=== PATIENT | male | born 1965 | race American Indian/Alaskan Native ===

== ENCOUNTER 2017-11-03 22:49 | Emergency (ER) | payer MEDICARE, MEDICAID ==
[2017-11-03] MEDS ORDERED: Magnesium Sulfate/Water 2 GM in Premix Bag 1 BAG IV ONE (23:51)
--- NOTE | 2017-11-03 23:51 | EDM.PDOC ---
ED HPI GENERAL MEDICAL PROBLEM - General Chief Complaint: Neuro Symptoms/Deficits Stated Complaint: BLOOD PRESSURE ISSUES Time Seen by Provider: 11/03/17 23:21 Source of Information: Reports: Patient, Family History Limitations: Reports: No Limitations - History of Present Illness INITIAL COMMENTS - FREE TEXT/NARRATIVE: pt arrived with a history of having some low bp and feeling very lit headed. Onset: Today Duration: Hour(s): Location: Reports: Head, Chest Associated Symptoms: Reports: Other (pt felt very lite headed, Pt has episodes when he feels like his heart is fluttring. ) Generalized Pain Score (Numeric/FACES): 7 - Related Data Allergies Allergy/AdvReac Type Severity Reaction Status Date / Time celecoxib [From Celebrex] Allergy Stomach Verified 11/03/17 23:31 Upset lisinopril Allergy Cough Verified 11/03/17 23:32 Penicillins Allergy Stomach Verified 11/03/17 23:31 Upset Sulfa (Sulfonamide Allergy Stomach Verified 11/03/17 23:31 Antibiotics) Upset sulfamethoxazole Allergy Stomach Verified 11/03/17 23:31 [From Septra] Upset trimethoprim [From Septra] Allergy Stomach Verified 11/03/17 23:31 Upset Home Meds: Home Meds Insulin Aspart [Novolog Flexpen] 10 unit SQ BID 07/31/14 [History] Insulin Detemir [Levemir Flextouch] 70 unit SQ BID 07/31/14 [History] Clopidogrel [Plavix] 75 mg PO DAILY 02/03/15 [History] amLODIPine [Norvasc] 5 mg PO DAILY 02/03/15 [History] atorvaSTATin [Lipitor] 80 mg PO DAILY 11/03/17 [History] Carvedilol [Coreg] 25 mg PO BID 11/04/17 [History] Furosemide [Lasix] 40 mg PO BID 11/04/17 [History] Isosorbide Mononitrate [Imdur] 30 mg PO DAILY 11/04/17 [History] Losartan [Cozaar] 100 mg PO DAILY 11/04/17 [History] Magnesium Oxide 400 mg PO BID 11/04/17 [History] Metoclopramide HCl 10 mg PO ASDIRECTED 11/04/17 [History] Ondansetron [Zofran] 8 mg PO ASDIRECTED 11/04/17 [History] Pantoprazole [ProTONIX] 40 mg PO BIDAC 11/04/17 [History] hydrALAZINE [Apresoline] 50 mg PO ASDIRECTED 11/04/17 [History] Past Medical History HEENT History: Reports: Hard of Hearing, Impaired Vision Cardiovascular History: Reports: Angina, CAD, High Cholesterol, Hypertension, Stents Gastrointestinal History: Reports: Cholelithiasis Genitourinary History: Reports: Acute Renal Failure Musculoskeletal History: Reports: Back Pain, Chronic, Fracture, Osteoarthritis Endocrine/Metabolic History: Reports: Diabetes, Type II - Infectious Disease History Infectious Disease History: Reports: Hepatitis A - Past Surgical History Cardiovascular Surgical History: Reports: Coronary Artery Stent Musculoskeletal Surgical History: Reports: Other (See Below) Social & Family History - Tobacco Use Smoking Status *Q: Never Smoker Years of Tobacco use: 25 Used Tobacco, but Quit: Yes Month/Year Tobacco Last Used: july 2011 Second Hand Smoke Exposure: No - Alcohol Use Days Per Week of Alcohol Use: 0 - Recreational Drug Use Recreational Drug Use: No ED ROS GENERAL - Review of Systems Review Of Systems: See Below Constitutional: Reports: No Symptoms HEENT: Reports: No Symptoms Respiratory: Reports: No Symptoms Cardiovascular: Reports: Other (pt felt liteheaded, ) Endocrine: Reports: No Symptoms GI/Abdominal: Reports: No Symptoms : Reports: No Symptoms Musculoskeletal: Reports: No Symptoms Skin: Reports: No Symptoms ED EXAM, NEURO - Physical Exam Exam: See Below Text/Narrative:: pt arrives with a history of feeling lite headed and he checked his bp at home and it was on the low side in the 100/ 70 range. He did not have chest pain. He does frequently have chest pain. He was just in the hosp at and he was found to be somewhat overloaded with fluid in his chest. His meds were changed at that time. He came home on . Exam Limited By: No Limitations General Appearance: Alert, No Apparent Distress, Other (pupils are equal and reactive. ) Ears: Normal TMs Nose: Normal Inspection Throat/Mouth: Normal Inspection Head Exam: Atraumatic Neck: Normal Inspection Respiratory/Chest: No Respiratory Distress Cardiovascular: Regular Rate, Rhythm GI/Abdominal: Other ( rate is in the 75 t0 80 range. ) (Male) Exam: Deferred Rectal (Males) Exam: Deferred Neurological: Alert, Oriented x 3, Other (pt felt very lite headed. ) Back Exam: Normal Inspection Extremities: Normal Inspection Psychiatric: Normal Affect Course - Vital Signs Last Recorded V/S: Last Vital Signs Temp 35.3 C 11/03/17 23:03 Pulse 73 11/04/17 00:30 Resp 13 11/04/17 00:30 BP 171/82 H 11/04/17 00:30 Pulse Ox 95 11/04/17 00:30 Orthostatic Blood Pressure [ 141/69 Standing] Orthostatic Blood Pressure [ 159/76 Sitting] Orthostatic Blood Pressure [ 168/82 Supine] - Orders/Labs/Meds Orders: Active Orders 24 hr Category Date Time Status EKG Documentation Completion [RC] ASDIRECTED Care 11/03/17 23:12 Active Orthostatic Vital Signs [RC] ASDIRECTED Care 11/03/17 23:49 Active Chest 1V Frontal [CR] Stat Exams 11/03/17 23:26 Taken UA W/MICROSCOPIC [URIN] Urgent Lab 11/03/17 23:11 Ordered Magnesium Sulfate/Water [Magnesium Sulfate 2 GM in Med 11/03/17 23:51 Active Water 50 ML] 2 gm Premix Bag 1 bag IV ONETIME EKG 12 Lead [EK] Routine Ther 11/03/17 23:12 Ordered Medication Orders Magnesium Sulfate 2 gm/ Premix 50 mls @ 12.5 mls/hr IV ONETIME ONE Stop: 11/04/17 03:50 Last Admin: 11/04/17 00:16 Dose: 12.5 mls/hr Labs: Laboratory Tests 11/03/17 11/03/17 11/03/17 Range/Units 23:16 23:16 23:16 WBC 4.6 (4.5-11.0) K/uL RBC 3.69 L (4.30-5.90) M/uL Hgb 10.8 L (12.0-15.0) g/dL Hct 32.9 L (40.0-54.0) % MCV 89 (80-98) fL MCH 29 (27-31) pg MCHC 33 (32-36) % Plt Count 266 (150-400) K/uL Neut % (Auto) 70 H (36-66) % Lymph % (Auto) 16 L (24-44) % Dawes % (Auto) 10 H (2-6) % Eos % (Auto) 4 (2-4) % Baso % (Auto) 0 (0-1) % Sodium 136 L (140-148) mmol/L Potassium 4.3 (3.6-5.2) mmol/L Chloride 96 L (100-108) mmol/L Carbon Dioxide 31 (21-32) mmol/L Anion Gap 13.3 (5.0-14.0) mmol/L BUN 24 H (7-18) mg/dL Creatinine 7.3 H* D (0.8-1.3) mg/dL Est Cr Clr Drug Dosing 11.70 mL/min Estimated GFR (MDRD) 8 L (>60) Glucose 352 H (74-106) mg/dL Calcium 7.3 L D (8.5-10.1) mg/dL Magnesium (1.8-2.4) mg/dL Total Bilirubin 0.4 D (0.2-1.0) mg/dL AST 42 H D (15-37) U/L ALT 42 D (12-78) U/L Alkaline Phosphatase 93 (46-116) U/L Troponin I < 0.017 (0.000-0.056) ng/mL Total Protein 6.7 (6.4-8.2) g/dL Albumin 3.4 (3.4-5.0) g/dL Globulin 3.3 (2.3-3.5) g/dL Albumin/Globulin Ratio 1.0 L (1.2-2.2) 11/03/17 Range/Units 23:16 WBC (4.5-11.0) K/uL RBC (4.30-5.90) M/uL Hgb (12.0-15.0) g/dL Hct (40.0-54.0) % MCV (80-98) fL MCH (27-31) pg MCHC (32-36) % Plt Count (150-400) K/uL Neut % (Auto) (36-66) % Lymph % (Auto) (24-44) % Dawes % (Auto) (2-6) % Eos % (Auto) (2-4) % Baso % (Auto) (0-1) % Sodium (140-148) mmol/L Potassium (3.6-5.2) mmol/L Chloride (100-108) mmol/L Carbon Dioxide (21-32) mmol/L Anion Gap (5.0-14.0) mmol/L BUN (7-18) mg/dL Creatinine (0.8-1.3) mg/dL Est Cr Clr Drug Dosing mL/min Estimated GFR (MDRD) (>60) Glucose (74-106) mg/dL Calcium (8.5-10.1) mg/dL Magnesium 1.6 L D (1.8-2.4) mg/dL Total Bilirubin (0.2-1.0) mg/dL AST (15-37) U/L ALT (12-78) U/L Alkaline Phosphatase (46-116) U/L Troponin I (0.000-0.056) ng/mL Total Protein (6.4-8.2) g/dL Albumin (3.4-5.0) g/dL Globulin (2.3-3.5) g/dL Albumin/Globulin Ratio (1.2-2.2) Meds: Medications Generic Name Dose Route Start Last Admin Trade Name Freq PRN Reason Stop Dose Admin Magnesium Sulfate 2 gm/ Premix 50 mls @ 12.5 mls/hr 11/03/17 23:51 11/04/17 00:16 IV 11/04/17 03:50 12.5 mls/hr ONETIME ONE Administration - Re-Assessments/Exams Free Text/Narrative Re-Assessment/Exam: 11/04/17 00:44 pt did not have a low bp on arrival. He was found to be in sinus rhythm. He has a low magnesium and h e was given iv mag. He had a normal trop. There was a concern about a run of a wide complex tach which was not demonstrated on the monitor. 11/04/17 02:25 The episode was later found and did look like episode of atrial flutter. A ekg was obtained and it looked like sinus rhythm at that time. Departure - Departure Time of Disposition: 02:26 Disposition: Home, Self-Care 01 Condition: Fair Clinical Impression: Light-headedness, Hypomagnesemia, Cardiac arrhythmia - Discharge Information Referrals: PCP,None [Primary Care Provider] - Forms: ED Department Discharge Care Plan Goals: mag oxide --increase to 400mg tid, 48 hour holter monitor, keep dialysis appointmnts. Rtc to the hosp to have the holter monitor placed, keep appt on the 08 of November with Rena Brown at [facility]. - My Orders Last 24 Hours: My Active Orders 11/03/17 23:11 UA W/MICROSCOPIC [URIN] Urgent 11/03/17 23:12 EKG Documentation Completion [RC] ASDIRECTED EKG 12 Lead [EK] Routine 11/03/17 23:26 Chest 1V Frontal [CR] Stat 11/03/17 23:49 Orthostatic Vital Signs [RC] ASDIRECTED 11/03/17 23:51 Magnesium Sulfate/Water [Magnesium Sulfate 2 GM in Water 50 ML] 2 gm Premix Bag 1 bag IV ONETIME - Assessment/Plan Last 24 Hours: My Active Orders 11/03/17 23:11 UA W/MICROSCOPIC [URIN] Urgent 11/03/17 23:12 EKG Documentation Completion [RC] ASDIRECTED EKG 12 Lead [EK] Routine 11/03/17 23:26 Chest 1V Frontal [CR] Stat 11/03/17 23:49 Orthostatic Vital Signs [RC] ASDIRECTED 11/03/17 23:51 Magnesium Sulfate/Water [Magnesium Sulfate 2 GM in Water 50 ML] 2 gm Premix Bag 1 bag IV ONETIME
[2017-11-04 02:01] VITALS: BP 171/82
[2017-11-04] MEDS ORDERED: Acetaminophen/Codeine 300-30 MG Tab PO ONE (02:45)
--- NOTE | 2017-11-05 10:13 | CR ---
CHEST: Portable CLINICAL HISTORY:Chest pain COMPARISON:2015 FINDINGS: Heart size pulmonary vascularity and hilar structures are normal. No infiltrate effusion o r pneumothorax is seen. Impression: No acute cardiopulmonary process or significant change from prior study.
== END 2017-11-04 02:57 | disposition home or self-care (01) ==
LOC: JP.ED 22:49
DX: I49.9 Cardiac arrhythmia, unspecified (principal); E83.42 Hypomagnesemia; E11.9 Type 2 diabetes mellitus without complications; I10 Essential (primary) hypertension; E78.00 Pure hypercholesterolemia, unspecified; Z87.891 Personal history of nicotine dependence; Z79.899 Other long term (current) drug therapy; Z79.4 Long term (current) use of insulin; Z88.0 Allergy status to penicillin; Z88.2 Allergy status to sulfonamides; Z88.8 Allergy status to other drugs, medicaments and biological substances
CPT/HCPCS: 36415; 71045; 80053; 83735; 84484; 85025; 93005; 96365; 96366; 99284; A9270; J3475; 93010; 99285

== ENCOUNTER 2017-11-04 23:43 | Emergency (ER) | payer MEDICARE, MEDICAID ==
--- NOTE | 2017-11-04 23:50 | EDM.PDOC ---
ED HPI GENERAL MEDICAL PROBLEM - General Chief Complaint: Chest Pain Stated Complaint: MED[facility] Time Seen by Provider: 11/04/17 23:49 Source of Information: Reports: Patient, EMS, Old Records, RN History Limitations: Reports: No Limitations - History of Present Illness INITIAL COMMENTS - FREE TEXT/NARRATIVE: 52 yo NA male who splits his ER visits between [facility] and [place] called EMS for pleuritic chest pain that began about 8 pm tonight and is worsened by deep breathing. He has a cardiac hx. EMS gave ASA and NTG with minimal change in his sx's. His EKG in the field was mostly normal. EMS noted some BP elevation , but his other vital signs were normal. Does have a known cardiac hx. Has not had any of his evening meds yet on arrival just before midnight. Says he had fluttering in his chest for about 15-30 min starting about 2030h. When the fluttering stopped he had the sharp L of sternum chest pain. Was here last night and is scheduled to get a Holter soon. He was noted to have a mag level of 1.6 last night, other labs were OK. BP last night was initially low. Is a dialysis patient. Goes to [facility] for his dialysis. Onset Date: 11/04/17 Onset Time: 20:30 Duration: Minutes: (lasted about 30 minutes) Location: Reports: Chest Quality: Reports: Sharp Severity: Moderate Improves with: Reports: None Worsens with: Reports: Breathing Context: Reports: Other (Has sharp chest pain nearly daily. ) Treatments CHERRY PITTER: Reports: Aspirin, IV/IO, Nitroglycerin chest Pain Score (Numeric/FACES): 6 - Related Data Allergies Allergy/AdvReac Type Severity Reaction Status Date / Time celecoxib [From Celebrex] Allergy Stomach Verified 11/04/17 23:49 Upset lisinopril Allergy Cough Verified 11/04/17 23:49 Penicillins Allergy Stomach Verified 11/04/17 23:49 Upset Sulfa (Sulfonamide Allergy Stomach Verified 11/04/17 23:49 Antibiotics) Upset sulfamethoxazole Allergy Stomach Verified 11/04/17 23:49 [From ] Upset trimethoprim [From ] Allergy Stomach Verified 11/04/17 23:49 Upset Home Meds: Home Meds Insulin Aspart [Novolog Flexpen] 10 unit SQ BID 07/31/14 [History] Clopidogrel [Plavix] 75 mg PO BEDTIME 02/03/15 [History] amLODIPine [Norvasc] 5 mg PO BEDTIME 02/03/15 [History] atorvaSTATin [Lipitor] 80 mg PO BEDTIME 11/03/17 [History] Carvedilol [Coreg] 25 mg PO BID 11/04/17 [History] Furosemide [Lasix] 40 mg PO BID 11/04/17 [History] Losartan [Cozaar] 100 mg PO BEDTIME 11/04/17 [History] Magnesium Oxide 400 mg PO TID 11/04/17 [History] Metoclopramide HCl 10 mg PO ASDIRECTED 11/04/17 [History] Ondansetron [Zofran] 8 mg PO ASDIRECTED 11/04/17 [History] Pantoprazole [ProTONIX] 40 mg PO BIDAC 11/04/17 [History] hydrALAZINE [Apresoline] 50 mg PO TID 11/04/17 [History] Escitalopram Oxalate 5 mg PO ASDIRECTED 11/05/17 [History] Insulin Glargine,Hum.Rec.Anlog [Tounahed Solostfam] 30 units SUBCUT BEDTIME [History] Past Medical History HEENT History: Reports: Hard of Hearing, Impaired Vision Cardiovascular History: Reports: Angina, CAD, High Cholesterol, Hypertension, Stents Gastrointestinal History: Reports: Cholelithiasis Genitourinary History: Reports: Acute Renal Failure Musculoskeletal History: Reports: Back Pain, Chronic, Fracture, Osteoarthritis Endocrine/Metabolic History: Reports: Diabetes, Type II - Infectious Disease History Infectious Disease History: Reports: Hepatitis A - Past Surgical History Cardiovascular Surgical History: Reports: Coronary Artery Stent Musculoskeletal Surgical History: Reports: Other (See Below) Social & Family History - Tobacco Use Smoking Status *Q: Never Smoker Years of Tobacco use: 25 Used Tobacco, but Quit: Yes Month/Year Tobacco Last Used: july 2011 Second Hand Smoke Exposure: No - Alcohol Use Days Per Week of Alcohol Use: 0 - Recreational Drug Use Recreational Drug Use: No ED ROS GENERAL - Review of Systems Review Of Systems: See Below Constitutional: Reports: No Symptoms HEENT: Reports: No Symptoms Respiratory: Reports: Pleuritic Chest Pain Cardiovascular: Reports: Chest Pain, Palpitations Endocrine: Reports: No Symptoms GI/Abdominal: Reports: No Symptoms : Reports: No Symptoms Musculoskeletal: Reports: No Symptoms Skin: Reports: No Symptoms Neurological: Reports: No Symptoms Psychiatric: Reports: No Symptoms ED EXAM, GENERAL - Physical Exam Exam: See Below Exam Limited By: No Limitations General Appearance: Alert, WD/WN, No Apparent Distress Eye Exam: Bilateral Eye: Normal Inspection Ears: Normal External Exam, Normal Canal, Hearing Grossly Normal, Normal TMs Ear Exam: Bilateral Ear: Auricle Normal, Canal Normal Nose: Normal Inspection, Normal Mucosa, No Blood Throat/Mouth: Normal Inspection, Normal Lips, Normal Oropharynx, Normal Voice, No Airway Compromise. No: Normal Teeth Head: Atraumatic, Normocephalic Neck: Normal Inspection, Supple, Non-Tender Respiratory/Chest: No Respiratory Distress, Lungs Clear, Normal Breath Sounds, No Accessory Muscle Use Cardiovascular: Regular Rate, Rhythm GI/Abdominal: Normal Bowel Sounds, Soft, Non-Tender, No Distention Back Exam: Normal Inspection. No: CVA Tenderness (R), CVA Tenderness (L) Extremities: Normal Inspection, Normal Range of Motion, Non-Tender, No Pedal Edema Neurological: Alert, Oriented, CN II-XII Intact, Normal Cognition, No Motor/ Sensory Deficits Psychiatric: Normal Affect, Normal Mood Skin Exam: Warm, Dry, Intact, Normal Color, No Rash EKG INTERPRETATION EKG Date: 11/04/17 Time: 23:45 Rhythm: NSR Rate (Beats/Min): 72 [place]: Normal P-Wave: Present QRS: Normal ST-T: Normal QT: Prolonged Comparison: No Change Course - Vital Signs Last Recorded V/S: Last Vital Signs Temp 36.8 C 11/04/17 23:45 Pulse 74 11/04/17 23:45 Resp 14 11/04/17 23:45 BP 184/84 H 11/05/17 00:19 Pulse Ox 96 11/04/17 23:45 - Orders/Labs/Meds Orders: Active Orders 24 hr Category Date Time Status Cardiac Monitoring [RC] .As Directed Care 11/04/17 23:47 Active EKG Documentation Completion [RC] ASDIRECTED Care 11/04/17 23:47 Active DRUG SCREEN, URINE [URCHEM] Stat Lab 11/04/17 23:53 Ordered EKG 12 Lead [EK] Routine Ther 11/04/17 23:47 Ordered Labs: Laboratory Tests 11/04/17 11/05/1718 Range/Units 00:01 00:01 00:01 WBC 5.3 (4.5-11.0) K/uL RBC 3.74 L (4.30-5.90) M/uL Hgb 10.8 L (12.0-15.0) g/dL Hct 33.2 L (40.0-54.0) % MCV 89 (80-98) fL MCH 29 (27-31) pg MCHC 33 (32-36) % Plt Count 298 (150-400) K/uL D-Dimer, Quantitative 205 (0.0-400.0) ng/mL Sodium (140-148) mmol/L Potassium (3.6-5.2) mmol/L Chloride (100-108) mmol/L Carbon Dioxide (21-32) mmol/L Anion Gap (5.0-14.0) mmol/L BUN (7-18) mg/dL Creatinine (0.8-1.3) mg/dL Est Cr Clr Drug Dosing mL/min Estimated GFR (MDRD) (>60) Glucose (74-106) mg/dL Calcium (8.5-10.1) mg/dL Troponin I (0.000-0.056) ng/mL Ethyl Alcohol < 3 mg/dL 11/05/17 Range/Units 00:01 WBC (4.5-11.0) K/uL RBC (4.30-5.90) M/uL Hgb (12.0-15.0) g/dL Hct (40.0-54.0) % MCV (80-98) fL MCH (27-31) pg MCHC (32-36) % Plt Count (150-400) K/uL D-Dimer, Quantitative (0.0-400.0) ng/mL Sodium 137 L (140-148) mmol/L Potassium 5.4 H (3.6-5.2) mmol/L Chloride 96 L (100-108) mmol/L Carbon Dioxide 30 (21-32) mmol/L Anion Gap 16.4 H (5.0-14.0) mmol/L BUN 32 H (7-18) mg/dL Creatinine 9.1 H* (0.8-1.3) mg/dL Est Cr Clr Drug Dosing 9.39 mL/min Estimated GFR (MDRD) 6 L (>60) Glucose 229 H (74-106) mg/dL Calcium 7.1 L (8.5-10.1) mg/dL Troponin I < 0.017 (0.000-0.056) ng/mL Ethyl Alcohol mg/dL Meds: Medications Discontinued Medications Generic Name Dose Route Start Last Admin Trade Name Temoq PRN Reason Stop Dose Admin Amlodipine Besylate 5 mg 11/05/17 00:01 11/05/17 00:19 Norvasc PO 11/05/17 00:02 5 mg ONETIME ONE Administration Carvedilol 25 mg 11/04/17 23:57 11/05/17 00:19 Coreg PO 11/04/17 23:58 25 mg ONETIME ONE Administration Hydralazine HCl 50 mg 11/04/17 23:55 11/05/17 00:18 Apresoline PO 11/04/17 23:56 50 mg NOW STA Administration Losartan Potassium 100 mg 11/05/17 00:03 11/05/17 00:19 Cozaar PO 11/05/17 00:04 100 mg ONETIME ONE Administration Departure - Departure Time of Disposition: 00:51 Disposition: Home, Self-Care 01 Condition: Fair Clinical Impression: Pleuritic chest pain, Chronic renal failure, stage 5 Referrals: PCP,None [Primary Care Provider] - Forms: ED Department Discharge - My Orders Last 24 Hours: My Active Orders 11/04/17 23:47 Cardiac Monitoring [RC] .As Directed EKG Documentation Completion [RC] ASDIRECTED EKG 12 Lead [EK] Routine 11/04/17 23:53 DRUG SCREEN, URINE [URCHEM] Stat - Assessment/Plan Last 24 Hours: My Active Orders 11/04/17 23:47 Cardiac Monitoring [RC] .As Directed EKG Documentation Completion [RC] ASDIRECTED EKG 12 Lead [EK] Routine 11/04/17 23:53 DRUG SCREEN, URINE [URCHEM] Stat
[2017-11-04] MEDS ORDERED: hydrALAZINE 25 MG Tab PO STA (23:55)
[2017-11-04] MEDS ORDERED: Carvedilol 25 MG Tab PO ONE (23:57)
[2017-11-05] MEDS ORDERED: amLODIPine 5 MG Tab PO ONE (00:01)
[2017-11-05] MEDS ORDERED: Losartan 50 MG Tab PO ONE (00:03)
[2017-11-05 01:29] VITALS: BP 186/58
== END 2017-11-05 01:07 | disposition home or self-care (01) ==
LOC: JP.ED 23:43
DX: R07.1 Chest pain on breathing (principal); I12.0 Hypertensive chronic kidney disease with stage 5 chronic kidney disease or end stage renal disease; E11.22 Type 2 diabetes mellitus with diabetic chronic kidney disease; N18.5 Chronic kidney disease, stage 5; M19.90 Unspecified osteoarthritis, unspecified site; Z79.899 Other long term (current) drug therapy; Z79.4 Long term (current) use of insulin; Z87.891 Personal history of nicotine dependence; Z88.0 Allergy status to penicillin; Z88.2 Allergy status to sulfonamides; Z88.1 Allergy status to other antibiotic agents; Z88.8 Allergy status to other drugs, medicaments and biological substances; I49.9 Cardiac arrhythmia, unspecified; E83.42 Hypomagnesemia; E11.9 Type 2 diabetes mellitus without complications; I10 Essential (primary) hypertension; E78.00 Pure hypercholesterolemia, unspecified
CPT/HCPCS: 36415; 71045; 80048; 80053; 83735; 84484; 85025; 85027; 85379; 93005; 93010; 96365; 96366; 99284; 99285; A9270; G0480; J3475

== ENCOUNTER 2017-11-06 19:44 | Emergency (ER) | payer MEDICARE, MEDICAID ==
[2017-11-06] MEDS ORDERED: fentaNYL 100 MCG/2 ML SDV IVPUSH ONE (20:31)
[2017-11-06] MEDS ORDERED: Sodium Chloride 0.9% 10 ML Syringe FLUSH PRN ×2 (20:31)
[2017-11-06] MEDS ORDERED: Ondansetron 4 MG/2 ML SDV IVPUSH ONE (20:31)
--- NOTE | 2017-11-06 20:34 | EDM.PDOC ---
ED HPI GENERAL MEDICAL PROBLEM - General Chief Complaint: Gastrointestinal Problem Stated Complaint: VOMITING / FLANK PAIN Time Seen by Provider: 11/06/17 20:20 Source of Information: Reports: Patient, Family, RN Notes Reviewed History Limitations: Reports: No Limitations - History of Present Illness INITIAL COMMENTS - FREE TEXT/NARRATIVE: 52-year-old gentleman presents to the emergency department day complaint of flank pain on the right side, pain is developed over the last 24 hours he does have nausea with it tried some Reglan this morning without much effect no vomiting, he is a dialysis patient last run was on Sunday fistula in left arm. Denies any fevers does have shortness of breath and chest pain but it is not new - Related Data Allergies Allergy/AdvReac Type Severity Reaction Status Date / Time celecoxib [From Celebrex] Allergy Stomach Verified 11/06/17 20:02 Upset lisinopril Allergy Cough Verified 11/06/17 20:02 Penicillins Allergy Stomach Verified 11/06/17 20:02 Upset Sulfa (Sulfonamide Allergy Stomach Verified 11/06/17 20:02 Antibiotics) Upset sulfamethoxazole Allergy Stomach Verified 11/06/17 20:02 [From Septra] Upset trimethoprim [From Septra] Allergy Stomach Verified 11/06/17 20:02 Upset Home Meds: Home Meds Insulin Aspart [Novolog Flexpen] 10 unit SQ BID 07/31/14 [History] Clopidogrel [Plavix] 75 mg PO BEDTIME 02/03/15 [History] amLODIPine [Norvasc] 5 mg PO BEDTIME 02/03/15 [History] atorvaSTATin [Lipitor] 80 mg PO BEDTIME 11/03/17 [History] Carvedilol [Coreg] 25 mg PO BID 11/04/17 [History] Furosemide [Lasix] 40 mg PO BID 11/04/17 [History] Losartan [Cozaar] 100 mg PO BEDTIME 11/04/17 [History] Magnesium Oxide 400 mg PO TID 11/04/17 [History] Metoclopramide HCl 10 mg PO ASDIRECTED 11/04/17 [History] Ondansetron [Zofran] 8 mg PO ASDIRECTED 11/04/17 [History] Pantoprazole [ProTONIX] 40 mg PO BIDAC 11/04/17 [History] hydrALAZINE [Apresoline] 50 mg PO TID 11/04/17 [History] Escitalopram Oxalate 5 mg PO ASDIRECTED 11/05/17 [History] Insulin Glargine,Hum.Rec.Anlog [Michael Galvan] 30 units SUBCUT BEDTIME [History] Past Medical History HEENT History: Reports: Hard of Hearing, Impaired Vision Cardiovascular History: Reports: Angina, CAD, High Cholesterol, Hypertension, Stents Gastrointestinal History: Reports: Cholelithiasis Genitourinary History: Reports: Acute Renal Failure Musculoskeletal History: Reports: Back Pain, Chronic, Fracture, Osteoarthritis Endocrine/Metabolic History: Reports: Diabetes, Type II - Infectious Disease History Infectious Disease History: Reports: Hepatitis A - Past Surgical History Cardiovascular Surgical History: Reports: Coronary Artery Stent Musculoskeletal Surgical History: Reports: Other (See Below) Social & Family History - Tobacco Use Smoking Status *Q: Unknown Ever Smoked Years of Tobacco use: 25 Used Tobacco, but Quit: Yes Month/Year Tobacco Last Used: july 2011 Second Hand Smoke Exposure: No - Caffeine Use Caffeine Use: Reports: Soda - Alcohol Use Days Per Week of Alcohol Use: 0 - Recreational Drug Use Recreational Drug Use: No ED ROS GENERAL - Review of Systems Review Of Systems: See Below Constitutional: Denies: Fever, Chills HEENT: Reports: No Symptoms Respiratory: Reports: Shortness of Breath (Not new) Cardiovascular: Reports: Chest Pain (Not) GI/Abdominal: Reports: Nausea : Reports: Flank Pain, Other (Produces little urine) Musculoskeletal: Reports: No Symptoms Skin: Reports: No Symptoms Neurological: Reports: No Symptoms ED EXAM, GI/ABD - Physical Exam Exam: See Below Text/Narrative:: General: Male, not in any distress, alert and oriented x3 HEENT: head is atraumatic normocephalic, eyes pupils equal round reactive to light, sclera clear no conjunctivitis appreciated. Ears tympanic membranes clear and [place] landmarks and light reflex are present bilaterally canals are clear. Nose no septal deviation, nares are clear, no blood present. Mouth mucosa is moist and pink no erythema or exudate noted in soft palate, tongue is midline uvula is midline, dentition is intact. Neck: Supple no thyromegaly no tracheal deviation. Nodes: Cervical nodes subclavicular nodes nontender no palpable lymphadenopathy noted. Lungs: clear to auscultation bilaterally with symmetrical respirations, no adventitious noise appreciated. CV: Regular rate and rhythm S1 and S2 appreciated no murmurs rubs or gallops noted. Abdomen: Soft, mildly tender along the right flank, no palpable masses or organomegaly appreciated, no distention no guarding bowel sounds are present, . Neuro: Cranial nerves II through XII grossly intact Skin: Warm and dry, intact Course - Vital Signs Last Recorded V/S: Last Vital Signs Temp 97.0 F 11/06/17 21:44 Pulse 70 11/06/17 21:44 Resp 14 11/06/17 21:44 BP 175/86 H 11/06/17 21:44 Pulse Ox 94 L 11/06/17 21:44 - Orders/Labs/Meds Orders: Active Orders 24 hr Category Date Time Status Peripheral IV Care [RC] . DIRECTED Care 11/06/17 20:31 Active Sodium Chloride 0.9% [Saline Flush] Med 11/06/17 20:31 Active 10 ml FLUSH ASDIRECTED PRN Sodium Chloride 0.9% [Saline Flush] Med 11/06/17 20:31 Active 10 ml FLUSH ASDIRECTED PRN Peripheral IV Insertion Adult [OM.PC] Urgent Oth 11/06/17 20:31 Ordered Medication Orders Sodium Chloride (Saline Flush) 10 ml FLUSH ASDIRECTED PRN PRN Reason: Keep Vein Open Last Admin: 11/06/17 20:52 Dose: 10 ml Sodium Chloride (Saline Flush) 10 ml FLUSH ASDIRECTED PRN PRN Reason: Keep Vein Open Labs: Laboratory Tests 11/06/17 11/06/17 11/06/17 Range/Units 20:45 20:45 20:45 WBC 5.6 (4.5-11.0) K/uL RBC 4.04 L (4.30-5.90) M/uL Hgb 11.5 L (12.0-15.0) g/dL Hct 35.8 L (40.0-54.0) % MCV 89 (80-98) fL MCH 29 (27-31) pg MCHC 32 (32-36) % Plt Count 352 (150-400) K/uL Neut % (Auto) 70 H (36-66) % Lymph % (Auto) 16 L (24-44) % Mcintosh % (Auto) 10 H (2-6) % Eos % (Auto) 4 (2-4) % Baso % (Auto) 0 (0-1) % Sodium 137 L (140-148) mmol/L Potassium 4.5 (3.6-5.2) mmol/L Chloride 96 L (100-108) mmol/L Carbon Dioxide 34 H (21-32) mmol/L Anion Gap 11.5 (5.0-14.0) mmol/L BUN 21 H (7-18) mg/dL Creatinine 7.5 H* (0.8-1.3) mg/dL Est Cr Clr Drug Dosing 11.39 mL/min Estimated GFR (MDRD) 8 L (>60) Glucose 208 H (74-106) mg/dL Lactic Acid 1.0 (0.4-2.0) mmol/L Calcium 7.6 L (8.5-10.1) mg/dL Total Bilirubin 0.4 (0.2-1.0) mg/dL AST 30 (15-37) U/L ALT 30 (12-78) U/L Alkaline Phosphatase 97 (46-116) U/L Troponin I < 0.017 (0.000-0.056) ng/mL Total Protein 6.8 (6.4-8.2) g/dL Albumin 3.3 L (3.4-5.0) g/dL Globulin 3.5 (2.3-3.5) g/dL Albumin/Globulin Ratio 0.9 L (1.2-2.2) Lipase 147 (73-393) U/L Meds: Medications Generic Name Dose Route Start Last Admin Trade Name Frenasir PRN Reason Stop Dose Admin Sodium Chloride 10 ml 11/06/17 20:31 11/06/17 20:52 Saline Flush FLUSH 10 ml ASDIRECTED PRN Administration Keep Vein Open Sodium Chloride 10 ml 11/06/17 20:31 Saline Flush FLUSH ASDIRECTED PRN Keep Vein Open Discontinued Medications Generic Name Dose Route Start Last Admin Trade Name Freq PRN Reason Stop Dose Admin Fentanyl 50 mcg 11/06/17 20:31 11/06/17 20:53 Sublimaze IVPUSH 11/06/17 20:32 50 mcg ONETIME ONE Administration Ondansetron HCl 4 mg 11/06/17 20:31 11/06/17 20:53 Zofran IVPUSH 11/06/17 20:32 4 mg ONETIME ONE Administration Departure - Departure Time of Disposition: 22:05 Disposition: Home, Self-Care Condition: Fair Clinical Impression: Flank pain - Discharge Information Referrals: PCP,None [Primary Care Provider] - Forms: ED Department Discharge Additional Instructions: Use hydrocodone as needed for pain control, keep your appointment with dialysis tomorrow, keep your appointment with your primary care provider on call return to the emergency department worsening of symptoms - My Orders Last 24 Hours: My Active Orders 11/06/17 20:31 Peripheral IV Care [RC] . DIRECTED Sodium Chloride 0.9% [Saline Flush] 10 ml FLUSH ASDIRECTED PRN Sodium Chloride 0.9% [Saline Flush] 10 ml FLUSH ASDIRECTED PRN Peripheral IV Insertion Adult [OM.PC] Urgent - Assessment/Plan Last 24 Hours: My Active Orders 11/06/17 20:31 Peripheral IV Care [RC] . DIRECTED Sodium Chloride 0.9% [Saline Flush] 10 ml FLUSH ASDIRECTED PRN Sodium Chloride 0.9% [Saline Flush] 10 ml FLUSH ASDIRECTED PRN Peripheral IV Insertion Adult [OM.PC] Urgent Plan: Assessment Acuity = acute Site and laterality = right flank pain complicated patient with end-stage renal disease currently on dialysis Etiology = unclear etiology Manifestations = none Location of injury = Home Lab values = hemoglobin low 11.5 consistent normochromic anemia, creatinine elevated at 7.5 consistent with end-stage renal disease G5 D, glucose elevated 28 consistent hyperglycemia, troponin negative Plan He received no relief from the fentanyl provided, he does have an appointment for dialysis tomorrow and appointment with his primary care doctor on of this week, prescription written for hydrocodone 5/325 one tab by mouth 3 times a day when necessary total #6 This note was dictated using [employer] voice recognition software please call with any questions on syntax or haley.
[2017-11-06 21:45] VITALS: BP 175/86
== END 2017-11-06 23:01 | disposition home or self-care (01) ==
LOC: JP.ED 19:44
DX: R10.9 Unspecified abdominal pain (principal); I12.0 Hypertensive chronic kidney disease with stage 5 chronic kidney disease or end stage renal disease; E11.22 Type 2 diabetes mellitus with diabetic chronic kidney disease; N18.6 End stage renal disease; Z99.2 Dependence on renal dialysis; M19.90 Unspecified osteoarthritis, unspecified site; Z79.4 Long term (current) use of insulin; Z79.899 Other long term (current) drug therapy; Z88.1 Allergy status to other antibiotic agents; Z88.0 Allergy status to penicillin; Z88.2 Allergy status to sulfonamides; Z88.8 Allergy status to other drugs, medicaments and biological substances
CPT/HCPCS: 36415; 80053; 83605; 83690; 84484; 85025; 96374; 96375; 99284; J2405; J3010; J7050

== ENCOUNTER 2017-11-11 19:23 | Emergency (ER) | payer MEDICARE, MEDICAID ==
[2017-11-11 19:58] VITALS: BP 185/94
--- NOTE | 2017-11-11 20:21 | EDM.PDOC ---
ED HPI GENERAL MEDICAL PROBLEM - General Chief Complaint: Cardiovascular Problem Stated Complaint: DIZZY,LEFT SHOULDER PAIN Time Seen by Provider: 11/11/17 20:10 Source of Information: Reports: Patient History Limitations: Reports: No Limitations - History of Present Illness INITIAL COMMENTS - FREE TEXT/NARRATIVE: 52-year-old male in with very nonspecific complaints of malaise, fatigue, dizziness, intermittent chest pain. On further questioning he did admit that he was in the emergency room in [place] 2 days ago with similar symptoms but they didn't do anything. He slept for 4:00 in the afternoon today, when he woke up he just felt weak so came in to be checked. No fevers or chills, no significant shortness of breath or cough, no nausea or vomiting. He has not checked his glucose today, I did not get the impression he checks it very often. He claims she's been taking his medications appropriately. Onset: Unknown/Unsure Associated Symptoms: Reports: Chest Pain, Headaches, Malaise, Weakness. Denies : Fever/Chills, Nausea/Vomiting - Related Data Allergies Allergy/AdvReac Type Severity Reaction Status Date / Time celecoxib [From Celebrex] Allergy Stomach Verified 11/11/17 19:59 Upset lisinopril Allergy Cough Verified 11/11/17 19:59 Penicillins Allergy Stomach Verified 11/11/17 19:59 Upset Sulfa (Sulfonamide Allergy Stomach Verified 11/11/17 19:59 Antibiotics) Upset sulfamethoxazole Allergy Stomach Verified 11/11/17 19:59 [From Septra] Upset trimethoprim [From Septra] Allergy Stomach Verified 11/11/17 19:59 Upset Home Meds: Home Meds Insulin Aspart [Novolog Flexpen] 10 unit SQ BID 07/31/14 [History] Clopidogrel [Plavix] 75 mg PO BEDTIME 02/03/15 [History] amLODIPine [Norvasc] 5 mg PO BEDTIME 02/03/15 [History] atorvaSTATin [Lipitor] 80 mg PO BEDTIME 11/03/17 [History] Carvedilol [Coreg] 25 mg PO DAILY 11/04/17 [History] Furosemide [Lasix] 40 mg PO BID 11/04/17 [History] Losartan [Cozaar] 100 mg PO BEDTIME 11/04/17 [History] Magnesium Oxide 400 mg PO TID 11/04/17 [History] Metoclopramide HCl 10 mg PO ASDIRECTED 11/04/17 [History] Ondansetron [Zofran] 8 mg PO ASDIRECTED PRN 11/04/17 [History] Pantoprazole [ProTONIX] 40 mg PO BIDAC 11/04/17 [History] hydrALAZINE [Apresoline] 50 mg PO TID 11/04/17 [History] Escitalopram Oxalate 5 mg PO DAILY 11/05/17 [History] Insulin Glargine,Hum.Rec.Anlog [T[place]hed Solostar] 30 units SUBCUT BEDTIME [History] Past Medical History HEENT History: Reports: Hard of Hearing, Impaired Vision Cardiovascular History: Reports: Angina, CAD, High Cholesterol, Hypertension, Stents Gastrointestinal History: Reports: Cholelithiasis Genitourinary History: Reports: Acute Renal Failure Musculoskeletal History: Reports: Back Pain, Chronic, Fracture, Osteoarthritis Endocrine/Metabolic History: Reports: Diabetes, Type II - Infectious Disease History Infectious Disease History: Reports: Hepatitis A - Past Surgical History Cardiovascular Surgical History: Reports: Coronary Artery Stent Musculoskeletal Surgical History: Reports: Other (See Below) Social & Family History - Tobacco Use Smoking Status *Q: Former Smoker Years of Tobacco use: 25 Used Tobacco, but Quit: Yes Month/Year Tobacco Last Used: 2011 Second Hand Smoke Exposure: No - Caffeine Use Caffeine Use: Reports: Soda - Alcohol Use Days Per Week of Alcohol Use: 0 - Recreational Drug Use Recreational Drug Use: No ED ROS GENERAL - Review of Systems Review Of Systems: See Below Constitutional: Reports: Malaise, Weakness. Denies: Fever, Chills Respiratory: Reports: Shortness of Breath Cardiovascular: Reports: Chest Pain GI/Abdominal: Denies: Abdominal Pain Skin: Reports: No Symptoms Neurological: Reports: Dizziness, Headache, Weakness ED EXAM, GENERAL - Physical Exam Exam: See Below Exam Limited By: No Limitations General Appearance: Alert, No Apparent Distress Eye Exam: Bilateral Eye: Normal Inspection (No jaundice, normal hydration) Head: Atraumatic Neck: Supple Respiratory/Chest: No Respiratory Distress, Lungs Clear Cardiovascular: Regular Rate, Rhythm, No Murmur GI/Abdominal: Soft, Non-Tender Extremities: No: Pedal Edema Neurological: Alert, Oriented Course - Vital Signs Last Recorded V/S: Last Vital Signs Temp 99.1 F 11/11/17 20:05 Pulse 84 11/11/17 20:05 Resp 12 11/11/17 20:05 BP 185/94 H 11/11/17 20:05 Pulse Ox 90 L 11/11/17 20:05 - Orders/Labs/Meds Labs: Laboratory Tests 11/11/17 11/11/17 11/11/17 Range/Units 20:31 20:31 20:31 WBC 6.7 (4.5-11.0) K/uL RBC 3.78 L (4.30-5.90) M/uL Hgb 11.0 L (12.0-15.0) g/dL Hct 33.6 L (40.0-54.0) % MCV 89 (80-98) fL MCH 29 (27-31) pg MCHC 33 (32-36) % Plt Count 316 (150-400) K/uL Neut % (Auto) 70 H (36-66) % Lymph % (Auto) 17 L (24-44) % [place] % (Auto) 10 H (2-6) % Eos % (Auto) 3 (2-4) % Baso % (Auto) 0 (0-1) % Sodium 135 L (140-148) mmol/L Potassium 4.7 (3.6-5.2) mmol/L Chloride 96 L (100-108) mmol/L Carbon Dioxide 32 (21-32) mmol/L Anion Gap 11.7 (5.0-14.0) mmol/L BUN 30 H (7-18) mg/dL Creatinine 8.3 H* (0.8-1.3) mg/dL Est Cr Clr Drug Dosing 10.29 mL/min Estimated GFR (MDRD) 7 L (>60) Glucose 265 H (74-106) mg/dL Calcium 7.8 L (8.5-10.1) mg/dL Troponin I 0.026 (0.000-0.056) ng/mL - Re-Assessments/Exams Free Text/Narrative Re-Assessment/Exam: 11/11/17 21:05 CBC, BMP and troponin were obtained. While waiting for the labs reviewed his records from [place] and found that he frequents the emergency room every 3-4 days with the same symptoms. He has had numerous cardiology consults, angiograms, stress tests, and his troponin which is been checked here 8 times over the past 2 years has always been normal. This appears to be some type of anxiety related or somatic complaint. 11/11/17 21:06 Troponin was within normal limits. Creatinine was elevated at 8.3, but he is due for dialysis tomorrow. Hemoglobin was 11, white count was normal. As the patient was being reassured he seemed to suddenly improve and sat up and was anxious to get going. Departure - Departure Time of Disposition: 21:17 Disposition: Home, Self-Care 01 Condition: Good Clinical Impression: Weakness, Atypical chest pain Instructions: Nonspecific Chest Pain Referrals: PCP,None [Primary Care Provider] - Forms: ED Department Discharge Care Plan Goals: Continue to take your medications as prescribed. Recheck with your regular physician later this week if you develop any other concerns or persistent symptoms. Return to the emergency room if worsening.
== END 2017-11-11 21:17 | disposition home or self-care (01) ==
LOC: JP.ED 19:23
DX: R07.89 Other chest pain (principal); R53.1 Weakness; E78.00 Pure hypercholesterolemia, unspecified; I10 Essential (primary) hypertension; E11.9 Type 2 diabetes mellitus without complications; Z87.891 Personal history of nicotine dependence; Z88.8 Allergy status to other drugs, medicaments and biological substances; Z88.2 Allergy status to sulfonamides; Z88.0 Allergy status to penicillin; Z79.899 Other long term (current) drug therapy
CPT/HCPCS: 36415; 80048; 84484; 85025; 99284

== ENCOUNTER 2017-11-21 00:08 | Emergency (ER) | payer MEDICARE, MEDICAID ==
[2017-11-21 00:29] VITALS: BP 183/90
--- NOTE | 2017-11-21 00:46 | EDM.PDOC ---
ED HPI GENERAL MEDICAL PROBLEM - General Chief Complaint: Chest Pain Stated Complaint: [facility] Time Seen by Provider: 11/21/17 00:25 Source of Information: Reports: Patient, EMS History Limitations: Reports: No Limitations - History of Present Illness INITIAL COMMENTS - FREE TEXT/NARRATIVE: 52-year-old male brought in by ambulance with chest pains. I saw this patient 10 days ago with chest pain, I evaluated his past medical history and found that he was frequenting emergency rooms for chest pain for the past several years, particularly over the past 6 months almost on a weekly basis. A troponin was drawn and normal and I reassured the patient, tried to convince him that if chest pains recur that they're likely related to anxiety or something other than cardiac. However 2 days later he was sent to [facility] with chest pains by EMS , had a thorough 3 days evaluation including an angiogram all negative. He was seen again 2 days ago in [place] with initially was a chief complaint of gastroenteritis type symptoms but developed chest pain while in the emergency room. A call was made to [facility] to consider re-transferring him to [facility] but they would not accept him because all labs, all evaluations have been done and if nothing is changing but his somatic complaints there is no further workup or treatment needed. 2 days later he is now in our emergency room again with chest pain. His EKG done by EMS was stable. He looks entirely comfortable. He complains that his chest pains are frequent, brief, needlelike and sometimes radiates to his left side. No shortness of breath. headache and a pin in his chest Pain Score (Numeric/FACES): 6 - Related Data Allergies Allergy/AdvReac Type Severity Reaction Status Date / Time celecoxib [From Celebrex] Allergy Stomach Verified 11/11/17 19:59 Upset lisinopril Allergy Cough Verified 11/11/17 19:59 Penicillins Allergy Stomach Verified 11/11/17 19:59 Upset Sulfa (Sulfonamide Allergy Stomach Verified 11/11/17 19:59 Antibiotics) Upset sulfamethoxazole Allergy Stomach Verified 11/11/17 19:59 [From ] Upset trimethoprim [From ] Allergy Stomach Verified 11/11/17 19:59 Upset Home Meds: Home Meds Insulin Aspart [Novolog Flexpen] 10 unit SQ BID 07/31/14 [History] Clopidogrel [Plavix] 75 mg PO BEDTIME 02/03/15 [History] amLODIPine [Norvasc] 5 mg PO BEDTIME 02/03/15 [History] atorvaSTATin [Lipitor] 80 mg PO BEDTIME 11/03/17 [History] Carvedilol [Coreg] 25 mg PO DAILY 11/04/17 [History] Furosemide [Lasix] 40 mg PO BID 11/04/17 [History] Losartan [Cozaar] 100 mg PO BEDTIME 11/04/17 [History] Magnesium Oxide 400 mg PO TID 11/04/17 [History] Metoclopramide HCl 10 mg PO ASDIRECTED 11/04/17 [History] Ondansetron [Zofran] 8 mg PO ASDIRECTED PRN 11/04/17 [History] Pantoprazole [ProTONIX] 40 mg PO BIDAC 11/04/17 [History] hydrALAZINE [Apresoline] 50 mg PO TID 11/04/17 [History] Escitalopram Oxalate 5 mg PO DAILY 11/05/17 [History] Insulin Glargine,Hum.Rec.Anlog [[place] Solostar] 30 units SUBCUT BEDTIME [History] Past Medical History HEENT History: Reports: Hard of Hearing, Impaired Vision Cardiovascular History: Reports: Angina, CAD, High Cholesterol, Hypertension, Stents Gastrointestinal History: Reports: Cholelithiasis Genitourinary History: Reports: Acute Renal Failure Musculoskeletal History: Reports: Back Pain, Chronic, Fracture, Osteoarthritis Endocrine/Metabolic History: Reports: Diabetes, Type II - Infectious Disease History Infectious Disease History: Reports: Hepatitis A - Past Surgical History Cardiovascular Surgical History: Reports: Coronary Artery Stent Musculoskeletal Surgical History: Reports: Other (See Below) Social & Family History - Caffeine Use Caffeine Use: Reports: Soda ED ROS GENERAL - Review of Systems Review Of Systems: See Below Constitutional: Denies: Fever, Chills Respiratory: Denies: Shortness of Breath, Cough Cardiovascular: Reports: Chest Pain GI/Abdominal: Reports: Other (His recent gastroenteritis symptoms worked up in [place] have resolved). Denies: Abdominal Pain, Nausea, Vomiting Psychiatric: Reports: Anxiety ED EXAM, GENERAL - Physical Exam Exam: See Below Exam Limited By: No Limitations General Appearance: Alert, No Apparent Distress Respiratory/Chest: No Respiratory Distress, Lungs Clear Cardiovascular: Regular Rate, Rhythm GI/Abdominal: Non-Tender Neurological: Alert, Oriented Psychiatric: Flat Affect Skin Exam: Warm, Dry Course - Vital Signs Last Recorded V/S: Last Vital Signs Temp 98.6 F 11/21/17 00:21 Pulse 81 11/21/17 00:21 Resp 18 11/21/17 00:21 BP 183/90 H 11/21/17 00:21 Pulse Ox 95 11/21/17 00:21 - Orders/Labs/Meds Labs: Laboratory Tests 11/21/17 Range/Units 00:20 Troponin I < 0.017 (0.000-0.056) ng/mL - Re-Assessments/Exams Free Text/Narrative Re-Assessment/Exam: 11/21/17 00:45 Explained to the patient I will check a troponin to rule out any heart damage for the last 2 days but no other workup is needed. 11/21/17 00:49 Troponin is 0 Departure - Departure Time of Disposition: 00:57 Disposition: Home, Self-Care 01 Condition: Good Clinical Impression: Non-cardiac chest pain - Discharge Information Instructions: Nonspecific Chest Pain Referrals: PCP,None [Primary Care Provider] - Forms: ED Department Discharge Care Plan Goals: Use tylenol and Xanax for chest pains, try to relax. Follow up with your regular doctor later this week for a recheck.
== END 2017-11-21 00:25 | disposition home or self-care (01) ==
LOC: JP.ED 00:08
DX: R07.89 Other chest pain (principal); I10 Essential (primary) hypertension; E11.9 Type 2 diabetes mellitus without complications; E78.00 Pure hypercholesterolemia, unspecified; Z79.4 Long term (current) use of insulin; Z79.899 Other long term (current) drug therapy; Z88.2 Allergy status to sulfonamides; Z88.0 Allergy status to penicillin; Z88.8 Allergy status to other drugs, medicaments and biological substances; Z88.1 Allergy status to other antibiotic agents
CPT/HCPCS: 36415; 84484; 99285

== ENCOUNTER 2018-01-01 22:01 | Emergency (ER) | payer MEDICARE, MEDICAID ==
[2018-01-01 22:45] VITALS: BP 164/82
--- NOTE | 2018-01-01 23:36 | EDM.PDOC ---
ED HPI GENERAL MEDICAL PROBLEM - General Chief Complaint: Back Pain or Injury Stated Complaint: BACK PAIN Time Seen by Provider: 01/01/18 22:57 Source of Information: Reports: Patient, Old Records, RN Notes Reviewed History Limitations: Reports: Other (poor historian, somewhat vague) - History of Present Illness INITIAL COMMENTS - FREE TEXT/NARRATIVE: 52-year-old male, both he and his daughter came into emergency be seen separately Chief complaint Left mid back pain History of present illness 52-year-old male with diabetes mellitus on insulin and with chronic renal failure on dialysis for about 2 years. States he is on dialysis because his kidneys were damage by contrast dye. Gets dialysis Wednesdays and Fridays. About 2 weeks ago started developing left-sided mid back pain, was seen in emergency for this. X-ray showed pleural effusion and he was sent for dialysis. Eventually he did have drainage of the fluid 150 mL. He did not make him feel any better. He continues to have left mid back pain but not short of breath. Feels better lying on his right, worse if he is on his back lying on his left side or walking around. No fever no cough no shortness of breath Nausea some days but no vomiting or diarrhea. He has a history of chronic depression which affects him somewhat. Blood sugars have been running between 1:15 to 175 which is better than previously. No numbness or weakness in his arms or legs No loss of bladder or bowel control No fever It's a bit unclear for me why he came to emergency, perhaps because his daughter did and perhaps it's because of the ongoing back pain, - Related Data Allergies Allergy/AdvReac Type Severity Reaction Status Date / Time celecoxib [From Celebrex] Allergy Stomach Verified 12/27/17 23:59 Upset lisinopril Allergy Cough Verified 12/27/17 23:59 Penicillins Allergy Stomach Verified 12/27/17 23:59 Upset Sulfa (Sulfonamide Allergy Stomach Verified 12/27/17 23:59 Antibiotics) Upset sulfamethoxazole Allergy Stomach Verified 12/27/17 23:59 [From ] Upset trimethoprim [From ] Allergy Stomach Verified 12/27/17 23:59 Upset Home Meds: Home Meds Insulin Aspart [Novolog Flexpen] 10 unit SQ DAILY 07/31/14 [History] Clopidogrel [Plavix] 75 mg PO BEDTIME 02/03/15 [History] amLODIPine [Norvasc] 5 mg PO BEDTIME 02/03/15 [History] atorvaSTATin [Lipitor] 80 mg PO BEDTIME 11/03/17 [History] Carvedilol [Coreg] 25 mg PO DAILY 11/04/17 [History] Furosemide [Lasix] 40 mg PO BID 11/04/17 [History] Losartan [Cozaar] 100 mg PO BEDTIME 11/04/17 [History] Magnesium Oxide 400 mg PO TID 11/04/17 [History] Metoclopramide HCl 10 mg PO ASDIRECTED 11/04/17 [History] Ondansetron [Zofran] 8 mg PO ASDIRECTED PRN 11/04/17 [History] Pantoprazole [ProTONIX] 40 mg PO BIDAC 11/04/17 [History] hydrALAZINE [Apresoline] 50 mg PO TID 11/04/17 [History] Escitalopram Oxalate 5 mg PO DAILY 11/05/17 [History] Cyclobenzaprine [Flexeril] 10 mg PO BID PRN #15 tab 01/02/18 [Rx] Past Medical History HEENT History: Reports: Hard of Hearing, Impaired Vision Cardiovascular History: Reports: Angina, CAD, High Cholesterol, Hypertension, Stents Gastrointestinal History: Reports: Cholelithiasis Genitourinary History: Reports: Chronic Renal Insuffiency, Dialysis Other Genitourinary History: [place] [facility] Musculoskeletal History: Reports: Back Pain, Chronic, Fracture, Osteoarthritis Psychiatric History: Reports: Anxiety, Depression Endocrine/Metabolic History: Reports: Diabetes, Type II - Infectious Disease History Infectious Disease History: Reports: Hepatitis A - Past Surgical History Cardiovascular Surgical History: Reports: Coronary Artery Stent Other Male Surgeries/Procedures: left arm fistula Neurological Surgical History: Reports: Laminectomy Musculoskeletal Surgical History: Reports: Other (See Below) Social & Family History - Tobacco Use Smoking Status *Q: Former Smoker Used Tobacco, but Quit: Yes Month/Year Tobacco Last Used: 2011 - Caffeine Use Caffeine Use: Reports: Coffee - Recreational Drug Use Recreational Drug Use: No ED ROS GENERAL - Review of Systems Review Of Systems: See Below Constitutional: Reports: No Symptoms HEENT: Reports: No Symptoms Respiratory: Reports: Other (left posterior chest/flank pain). Denies: Shortness of Breath Cardiovascular: Reports: No Symptoms Endocrine: Reports: No Symptoms GI/Abdominal: Reports: No Symptoms : Reports: Flank Pain. Denies: Dysuria, Frequency, Incontinence Musculoskeletal: Reports: Back Pain (to the left of the mid spine), Leg Pain. Denies: Neck Pain Skin: Reports: No Symptoms Neurological: Reports: No Symptoms Immunologic: Reports: No Symptoms ED EXAM, GENERAL - Physical Exam Exam: See Below Exam Limited By: No Limitations General Appearance: Alert, No Apparent Distress (appears relaxed not in acute distress), Other (lying quietly on his right side, vital signs show elevated systolic blood pressure otherwise normal) Eye Exam: Bilateral Eye: Normal Inspection Ears: Normal External Exam, Hearing Loss (, chronic) Nose: Normal Inspection Throat/Mouth: Normal Inspection Head: Atraumatic, Normocephalic Neck: Normal Inspection, Supple Respiratory/Chest: No Respiratory Distress, No Accessory Muscle Use Cardiovascular: Normal Peripheral Pulses, Regular Rate, Rhythm GI/Abdominal: Normal Bowel Sounds, Soft, Non-Tender, No Abnormal Bruit, No Mass Back Exam: CVA Tenderness (L), Muscle Spasm, Paraspinal Tenderness. No: Vertebral Tenderness Extremities: Normal Inspection, Non-Tender Neurological: Alert, No Motor/Sensory Deficits Psychiatric: Flat Affect Skin Exam: Warm, Dry, No Rash Course - Vital Signs Last Recorded V/S: Last Vital Signs Temp 36.1 C 01/01/18 22:44 Pulse 72 01/01/18 22:44 Resp 18 01/01/18 22:44 BP 164/82 H 01/01/18 22:44 Pulse Ox 93 L 01/01/18 22:44 - Orders/Labs/Meds Orders: Active Orders 24 hr Category Date Time Status Chest 2V [CR] Stat Exams 01/01/18 23:26 Taken Labs: Laboratory Tests 01/01/18 01/01/18 Range/Units 23:30 23:30 WBC 5.6 (4.5-11.0) K/uL RBC 3.37 L (4.30-5.90) M/uL Hgb 9.9 L (12.0-15.0) g/dL Hct 30.1 L (40.0-54.0) % MCV 89 (80-98) fL MCH 29 (27-31) pg MCHC 33 (32-36) % Plt Count 284 (150-400) K/uL Sodium 140 (140-148) mmol/L Potassium 5.1 (3.6-5.2) mmol/L Chloride 100 (100-108) mmol/L Carbon Dioxide 31 (21-32) mmol/L Anion Gap 8.9 (5.0-14.0) mmol/L BUN 45 H (7-18) mg/dL Creatinine 8.5 H* (0.8-1.3) mg/dL Est Cr Clr Drug Dosing 10.05 mL/min Estimated GFR (MDRD) 7 L (>60) Glucose 249 H (74-106) mg/dL Calcium 7.1 L (8.5-10.1) mg/dL Total Bilirubin 0.3 (0.2-1.0) mg/dL AST 19 (15-37) U/L ALT 18 (12-78) U/L Alkaline Phosphatase 99 (46-116) U/L Total Protein 6.6 (6.4-8.2) g/dL Albumin 2.9 L (3.4-5.0) g/dL Globulin 3.7 H (2.3-3.5) g/dL Albumin/Globulin Ratio 0.8 L (1.2-2.2) - Re-Assessments/Exams Free Text/Narrative Re-Assessment/Exam: 01/01/18 23:37 52-year-old male with left-sided paraspinal tenderness she reports started 2 weeks ago. He's on dialysis and has diabetes. It's unclear if he wishes treatment for this, he can hydrocodone earlier in the week. differential diagnosis includes infection versus musculoskeletal pain, however pain is reproducible by palpation Lab and x-ray investigations 01/01/18 23:45 chest x-ray showing persistent bilateral effusions but no signs of pneumonia or infection Mild anemia, present previously, elevated creatinine and BUN as expected No other significant findings 01/02/18 00:39 Departure - Departure Time of Disposition: 00:41 Disposition: Home, Self-Care 01 Condition: Good Clinical Impression: Mid back pain on left side - Discharge Information Instructions: Back Pain, Adult, [id number] Referrals: PCP,None [Primary Care Provider] - Forms: ED Department Discharge Additional Instructions: back pain, mid back left side Most likely sore muscles as the pain can be reproduced by pushing on the back. Stay as active as possible but to help his sleep, muscle relaxant prescribed for use at night as needed Follow-up with your doctor/physician/clinic 1-2 weeks if you are continuing to have discomfort Get checked sooner if you develop fever or vomiting - My Orders Last 24 Hours: My Active Orders 01/01/18 23:26 Chest 2V [CR] Stat - Assessment/Plan Last 24 Hours: My Active Orders 01/01/18 23:26 Chest 2V [CR] Stat
--- NOTE | 2018-01-02 08:38 | CR ---
CHEST: 2 view CLINICAL HISTORY:Bilateral effusions COMPARISON:12/28/2017 FINDINGS: Patient is persistent bibasal pleural effusions. The there may be a slight increase on the left. Pulmonary vascularity is normal.. IMPRESSION: Persistent bilateral pleural effusions, left greater than right. There is a slight incre ase on the left when compared to prior study.
== END 2018-01-02 01:25 | disposition home or self-care (01) ==
LOC: JP.ED 22:01
DX: M54.6 Pain in thoracic spine (principal); I12.9 Hypertensive chronic kidney disease with stage 1 through stage 4 chronic kidney disease, or unspecified chronic kidney disease; E11.22 Type 2 diabetes mellitus with diabetic chronic kidney disease; N18.9 Chronic kidney disease, unspecified; F41.9 Anxiety disorder, unspecified; F32.9 Major depressive disorder, single episode, unspecified; Z87.891 Personal history of nicotine dependence; Z79.899 Other long term (current) drug therapy; Z88.2 Allergy status to sulfonamides; Z88.8 Allergy status to other drugs, medicaments and biological substances; Z88.0 Allergy status to penicillin; Z88.1 Allergy status to other antibiotic agents
CPT/HCPCS: 36415; 71046; 71046-26; 80053; 85027; 99283; 99284

== ENCOUNTER 2018-01-10 21:23 | Emergency (ER) | payer MEDICARE, MEDICAID ==
[2018-01-10 22:24] VITALS: BP 186/90
--- NOTE | 2018-01-10 22:48 | EDM.PDOC ---
ED HPI GENERAL MEDICAL PROBLEM - General Chief Complaint: General Stated Complaint: LIGHTHEADED,NUMBNESS IN FEET Time Seen by Provider: 01/10/18 22:30 Source of Information: Reports: Patient History Limitations: Reports: No Limitations - History of Present Illness INITIAL COMMENTS - FREE TEXT/NARRATIVE: 52 yo NA male presents with light-headedness since this morning. He has CRF and gets dialysis on . He ate a light dinner without any reduction in his sx' s. He did not contact his provider about this. He denies nausea, vomiting, diarrhea or bleeding. No fever. No CORREA. Blood sugars OK. 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[employer] ACQUISTION: Reports: Other (see below) (none) - Related Data Allergies Allergy/AdvReac Type Severity Reaction Status Date / Time celecoxib [From Celebrex] Allergy Stomach Verified 01/10/18 22:23 Upset lisinopril Allergy Cough Verified 01/10/18 22:23 Penicillins Allergy Stomach Verified 01/10/18 22:23 Upset Sulfa (Sulfonamide Allergy Stomach Verified 01/10/18 22:23 Antibiotics) Upset sulfamethoxazole Allergy Stomach Verified 01/10/18 22:23 [From Septra] Upset trimethoprim [From Septra] Allergy Stomach Verified 01/10/18 22:23 Upset Home Meds: Home Meds Insulin Aspart [Novolog Flexpen] 10 unit SQ DAILY 07/31/14 [History] Clopidogrel [Plavix] 75 mg PO BEDTIME 02/03/15 [History] amLODIPine [Norvasc] 5 mg PO BEDTIME 02/03/15 [History] atorvaSTATin [Lipitor] 80 mg PO BEDTIME 11/03/17 [History] Carvedilol [Coreg] 25 mg PO DAILY 11/04/17 [History] Furosemide [Lasix] 40 mg PO BID 11/04/17 [History] Losartan [Cozaar] 100 mg PO BEDTIME 11/04/17 [History] Magnesium Oxide 400 mg PO TID 11/04/17 [History] Metoclopramide HCl 10 mg PO ASDIRECTED 11/04/17 [History] Ondansetron [Zofran] 8 mg PO ASDIRECTED PRN 11/04/17 [History] Pantoprazole [ProTONIX] 40 mg PO BIDAC 11/04/17 [History] hydrALAZINE [Apresoline] 50 mg PO TID 11/04/17 [History] Escitalopram Oxalate 5 mg PO DAILY 11/05/17 [History] Cyclobenzaprine [Flexeril] 10 mg PO BID PRN #15 tab 01/02/18 [Rx] Past Medical History HEENT History: Reports: Hard of Hearing, Impaired Vision Cardiovascular History: Reports: Angina, CAD, High Cholesterol, Hypertension, Stents Gastrointestinal History: Reports: Cholelithiasis Genitourinary History: Reports: Chronic Renal Insuffiency, Dialysis Other Genitourinary History: [place] [facility] Musculoskeletal History: Reports: Back Pain, Chronic, Fracture, Osteoarthritis Psychiatric History: Reports: Anxiety, Depression Endocrine/Metabolic History: Reports: Diabetes, Type II - Infectious Disease History Infectious Disease History: Reports: Hepatitis A - Past Surgical History Cardiovascular Surgical History: Reports: Coronary Artery Stent Other Male Surgeries/Procedures: left arm fistula Neurological Surgical History: Reports: Laminectomy Musculoskeletal Surgical History: Reports: Other (See Below) Social & Family History - Tobacco Use Smoking Status *Q: Never Smoker - Caffeine Use Caffeine Use: Reports: Soda - Recreational Drug Use Recreational Drug Use: No ED ROS GENERAL - Review of Systems Review Of Systems: See Below Constitutional: Reports: No Symptoms HEENT: Reports: No Symptoms Respiratory: Reports: No Symptoms Cardiovascular: Reports: Lightheadedness Endocrine: Reports: No Symptoms GI/Abdominal: Reports: No Symptoms : Reports: No Symptoms Musculoskeletal: Reports: No Symptoms Skin: Reports: No Symptoms Neurological: Reports: No Symptoms ED EXAM, GENERAL - Physical Exam Exam: See Below Exam Limited By: No Limitations General Appearance: Alert, WD/WN, No Apparent Distress Eye Exam: Bilateral Eye: Normal Inspection Ears: Normal External Exam, Normal Canal, Hearing Grossly Normal, Normal TMs Ear Exam: Bilateral Ear: Auricle Normal, Canal Normal, TM normal Nose: Normal Inspection, No Blood Throat/Mouth: Normal Inspection, Normal Lips, Normal Oropharynx, Normal Voice, No Airway Compromise Head: Atraumatic, Normocephalic Neck: Normal Inspection, Supple, Non-Tender Respiratory/Chest: No Respiratory Distress, Lungs Clear, Normal Breath Sounds, No Accessory Muscle Use Cardiovascular: Regular Rate, Rhythm, No Edema GI/Abdominal: Normal Bowel Sounds, Soft, Non-Tender, No Distention Back Exam: Normal Inspection Extremities: Normal Inspection, Normal Range of Motion, Non-Tender Neurological: Alert, Oriented, CN II-XII Intact, Normal Cognition Psychiatric: Normal Affect, Normal Mood Skin Exam: Warm, Dry, Intact, Normal Color, No Rash Course - Vital Signs Text/Narrative:: No change in sx's with 750 ml IV NS. Last Recorded V/S: Last Vital Signs Temp 35.9 C 01/10/18 22:26 Pulse 81 01/10/18 22:26 Resp 18 01/10/18 22:26 BP 186/90 H 01/10/18 22:26 Pulse Ox 94 L 01/10/18 22:26 Orthostatic Blood Pressure [ 189/94 Standing] Orthostatic Blood Pressure [ 190/98 Sitting] Orthostatic Blood Pressure [ 195/95 Supine] - Orders/Labs/Meds Orders: Active Orders 24 hr Category Date Time Status Orthostatic Vital Signs [RC] ASDIRECTED Care 01/10/18 22:43 Active Labs: Laboratory Tests 01/10/18 01/11/18 Range/Units 23:30 00:25 WBC 4.7 (4.5-11.0) K/uL RBC 3.80 L (4.30-5.90) M/uL Hgb 11.0 L (12.0-15.0) g/dL Hct 33.9 L (40.0-54.0) % MCV 89 (80-98) fL MCH 29 (27-31) pg MCHC 32 (32-36) % Plt Count 297 (150-400) K/uL Sodium 141 (140-148) mmol/L Potassium 5.0 (3.6-5.2) mmol/L Chloride 100 (100-108) mmol/L Carbon Dioxide 30 (21-32) mmol/L Anion Gap 10.6 (5.0-14.0) mmol/L BUN 37 H (7-18) mg/dL Creatinine 7.7 H* (0.8-1.3) mg/dL Est Cr Clr Drug Dosing 11.09 mL/min Estimated GFR (MDRD) 7 L (>60) Glucose 212 H (74-106) mg/dL Calcium 7.7 L (8.5-10.1) mg/dL Meds: Medications Discontinued Medications Generic Name Dose Route Start Last Admin Trade Name Freq PRN Reason Stop Dose Admin Sodium Chloride 500 mls @ 1,000 mls/hr 01/10/18 23:26 01/10/18 23:53 Normal Saline IV 01/10/18 23:55 1,000 mls/hr .BOLUS ONE Administration Departure - Departure Time of Disposition: 00:10 Disposition: Home, Self-Care 01 Condition: Fair Clinical Impression: Light-headed feeling - Discharge Information Referrals: PCP,None [Primary Care Provider] - Forms: ED Department Discharge - My Orders Last 24 Hours: My Active Orders 01/10/18 22:43 Orthostatic Vital Signs [RC] ASDIRECTED - Assessment/Plan Last 24 Hours: My Active Orders 01/10/18 22:43 Orthostatic Vital Signs [RC] ASDIRECTED
[2018-01-10] MEDS ORDERED: Sodium Chloride 0.9% 500 ML IV ONE (23:26)
== END 2018-01-11 01:08 | disposition home or self-care (01) ==
LOC: JP.ED 21:23
DX: R42 Dizziness and giddiness (principal); I12.9 Hypertensive chronic kidney disease with stage 1 through stage 4 chronic kidney disease, or unspecified chronic kidney disease; N18.9 Chronic kidney disease, unspecified; E78.00 Pure hypercholesterolemia, unspecified; F41.9 Anxiety disorder, unspecified; F32.9 Major depressive disorder, single episode, unspecified; Z99.2 Dependence on renal dialysis; Z88.0 Allergy status to penicillin; Z88.2 Allergy status to sulfonamides; Z88.1 Allergy status to other antibiotic agents; Z79.899 Other long term (current) drug therapy; Z88.8 Allergy status to other drugs, medicaments and biological substances
CPT/HCPCS: 36415; 80048; 85027; 96360; 99284; J7040